=== PATIENT | female | born 1995 | race Two or more races ===

== ENCOUNTER 2023-10-28 07:45 | Inpatient (IN) | payer OTHER ==
[~2023-10-28] VITALS: Ht 167.6 cm; Wt 76.2 kg
[2023-10-28] MEDS ORDERED: FERROCITE324 MG PO (09:17)
[2023-10-28 09:31] LABS: INR 1.07; PARTIAL THROMBOPLASTIN TIME 29.1 SECONDS (22.0-34.0); PROTHROMBIN TIME 11.2 SECONDS (9.0-11.5)
[2023-11-04] MEDS ORDERED: ONDANSETRON HCL 2 MG/ML VIAL IV PRN (15:30)
[2023-11-04] MEDS ORDERED: ENALAPRILAT DIHYDRATE 1.25 MG/ML VIAL IV PRN (15:30)
[2023-11-04] MEDS ORDERED: ACETAMINOPHEN 500 MG GEL..CAP PO SCH (17:00)
[2023-11-04] MEDS ORDERED: CYCLOBENZAPRINE HCL 5 MG TABLET PO SCH (17:00)
[2023-11-04] MEDS ORDERED: TRAMADOL HCL 50 MG TABLET PO SCH (18:00)
[2023-11-04] MEDS ORDERED: PANTOPRAZOLE SODIUM 40 MG/VIAL VIAL IV PUSH SCH (21:00)
== END 2023-11-05 13:58 | disposition home or self-care (01) | DRG 627 ==
LOC: SURH 11-04 07:45 → O/R 11-04 08:05 → SURH 11-04 09:45
PROVIDERS: ADMIT Surgery; ATTEND Surgery
PROC: 0GTG0ZZ Resection of Left Thyroid Gland Lobe, Open Approach (ICD-10-PCS; principal; 2023-11-04 09:45)
DX: C73 Malignant neoplasm of thyroid gland (principal); Z20.822 Contact with and (suspected) exposure to COVID-19

== ENCOUNTER 2025-01-11 09:29 | Outpatient (CLI) | payer OTHER ==
[~2025-01-11 09:29] MED LIST: FERROCITE324 MG PO
== END 2025-01-11 09:31 | disposition home or self-care (01) ==
LOC: SONOGRAMA 09:29
PROVIDERS: ATTEND Pathology Anatomic Pathology
DX: E04.1 Nontoxic single thyroid nodule (principal)